=== PATIENT | female | born 1995 | race Caucasian/White ===

== ENCOUNTER 2019-06-10 11:55 | Emergency (ER) | payer OTHER ==
[2019-06-10 12:56] LABS: EOS # 0.1 (0.04-0.40); EOS % 1.6 % (1.0-5.0); HEMATOCRIT 43.4 % (37.0-47.0); HEMOGLOBIN 14.4 g/dL (12.5-16.0); MEAN CELL VOLUME 93 fl (78-100); MEAN CORPUSCULAR HEMOGLOBIN 31 pg (27-31); MEAN CORPUSCULAR HGB CONC 33 g/dL (33-37); MEAN PLATELET VOLUME 8.9 fl (7.4-10.4); MONO # 0.3 (0.20-0.80); NEU # 3.8 (1.40-6.50); PLATELET COUNT 360 K/mm3 (130-400); RED BLOOD COUNT 4.68 M/mm3 (4.10-5.30); RED CELL DISTRIBUTION WIDTH 11.5 % (11.5-14.5); WHITE BLOOD COUNT 6.3 K/mm3 (4.8-10.8)
[2019-06-10 13:05] LABS: ALBUMIN 4.4 g/dL (3.5-5.0); POTASSIUM 3.8 mmol/L (3.5-5.1)
[2019-06-10 13:06] LABS: CALCIUM 9.4 mg/dL (8.3-10.5)
[2019-06-10 13:07] LABS: TOTAL PROTEIN 7.4 g/dL (6.4-8.3)
[2019-06-10 13:09] LABS: TOTAL BILIRUBIN 0.4 mg/dL (0.2-1.2)
[2019-06-10] MEDS ORDERED: MORGIDOX 1X100100 MG PO (13:34)
[2019-06-10] MEDS ORDERED: ONDANSETRON ODT8 MG PO (14:08)
[2019-06-10 15:20] VITALS: BP 117/70
== END 2019-06-10 14:18 | disposition home or self-care (01) ==
LOC: ED 11:55
PROVIDERS: Nurse Practitioner Family
DX: G43.109 Migraine with aura, not intractable, without status migrainosus (principal); Z86.69 Personal history of other diseases of the nervous system and sense organs
CPT/HCPCS: J1200; J1885; J2550; J7030